=== PATIENT | female | born 1940 | race African-American/Black ===

== ENCOUNTER 2017-09-17 10:48 | Emergency (ER) | payer OTHER ==
[2017-09-17 11:02] VITALS: BP 134/80; PULSE 94; TEMP 98.6; BMI 35.6
[2017-09-17] MEDS ORDERED: ONDANSETRON 4 MG/2 ML VIAL IVPUSH ONE (11:54)
[2017-09-17] MEDS ORDERED: FAMOTIDINE 20 MG/50 ML IVPB 20 MG/50 ML MG IVPB ONE ×2 (11:54→11:56)
[2017-09-17] MEDS ORDERED: SODIUM CHLORIDE 0.9% 500 ML INFUS.BAG IV ONE (11:54)
[2017-09-17] MEDS ORDERED: ONDANSETRON 4 MG/2 ML VIAL ONE (11:56)
--- NOTE | 2017-09-17 11:58 | PDOC ---
History of Present Illness - General Chief Complaint: Diarrhea Stated Complaint: DIARRHEA Time Seen by Provider: 09/17/17 11:08 - History of Present Illness Initial Comments: 09/17/17 11:54 77-year-old female with a history of hypertension presents emergency Department with nausea vomiting and diarrhea since last night. The patient reports eating dinner with her family and going to sleep but awoke in the middle of the night and had 4-5 episodes of nonbloody nonbilious emesis and 5 episodes of nonbloody watery diarrhea. No recent antibiotics. Denies any sick contacts. Denies fevers , chills. Denies abdominal pain. No treatments tried. States she feels dehydrated. Denies any headaches, chest pain, shortness of breath, lower extremity edema, urinary symptoms. No recent travel. Past History - Past Medical History Allergies/Adverse Reactions: Allergies Allergy/AdvReac Type Severity Reaction Status Date / Time No Known Allergies Allergy Verified 09/17/17 10:53 Home Medications: Ambulatory Orders Ascorbate Calcium [Vitamin C] 500 mg PO DAILY 02/08/14 Cholecalciferol (Vitamin D3) [Vitamin D3] 1,000 unit PO DAILY 02/08/14 Esomeprazole Mag Trihydrate [Nexium] 40 mg PO DAILY 02/08/14 Furosemide [Lasix -] 20 mg PO DAILY 02/08/14 Olmesartan/Amlodipin/Hcthiazid [Tgyyksr-Wojulr-Xaqd 40-5-25 mg] 1 each PO DAILY 09/17/17 COPD: No GI Disorders: Yes (GERD) HTN: Yes Hypercholesterolemia: Yes - Surgical History Cholecystectomy: Yes - Suicide/Smoking/Psychosocial Hx Smoking History: Former smoker Have you smoked in the past 12 months: No If you are a former smoker, when did you quit?: 25 YEARS AGO Information on smoking cessation initiated: No Hx Alcohol Use: No Drug/Substance Use Hx: No Substance Use Type: None Review of Systems - Review of Systems Comments:: 09/17/17 11:56 GENERAL/CONSTITUTIONAL: No fever or chills. No weakness. HEAD, EYES, EARS, NOSE AND THROAT: No change in vision. No ear pain or discharge. No sore throat. GASTROINTESTINAL: +nausea, vomiting, diarrhea, no constipation. GENITOURINARY: No dysuria, frequency, or change in urination. CARDIOVASCULAR: No chest pain or shortness of breath. RESPIRATORY: No cough, wheezing, or hemoptysis. MUSCULOSKELETAL: No joint or muscle swelling or pain. No neck or back pain. SKIN: No rash NEUROLOGIC: No headache, vertigo, loss of consciousness, or change in strength/ sensation. ENDOCRINE: No increased thirst. No abnormal weight change. HEMATOLOGIC/LYMPHATIC: No anemia, easy bleeding, or history of blood clots. ALLERGIC/IMMUNOLOGIC: No hives or skin allergy. *Physical Exam - Vital Signs Last Vital Signs Temp Pulse Resp BP Pulse Ox 98.6 F 94 H 16 134/80 100 09/17/17 10:49 09/17/17 10:49 09/17/17 10:49 09/17/17 10:49 09/17/17 10:49 - Physical Exam Comments: 09/17/17 11:56 GENERAL: Awake, alert, and fully oriented, in no acute distress HEAD: No signs of trauma EYES: PERRLA, EOMI, sclera anicteric, conjunctiva clear ENT: Auricles normal inspection, hearing grossly normal, nares patent, oropharynx clear without exudates. dry MM NECK: Normal ROM, supple, no lymphadenopathy, JVD, or masses LUNGS: Breath sounds equal, clear to auscultation bilaterally. No wheezes, and no crackles HEART: Regular rate and rhythm, normal S1 and S2, no murmurs, rubs or gallops ABDOMEN: Soft, nontender, normoactive bowel sounds. No guarding, no rebound. No masses EXTREMITIES: Normal range of motion, no edema. No clubbing or cyanosis. No cords, erythema, or tenderness NEUROLOGICAL: Normal speech, cranial nerves intact, negative pronator drift, 5/ 5 strength in all 4 extremities, normal sensation to light touch in all 4 extremities, normal cerebellar exam, normal gait, normal reflexes and tone SKIN: Warm, Dry, normal turgor, no rashes or lesions noted. ED Treatment Course - LABORATORY CBC & Chemistry Diagram: 09/17/17 12:00 09/17/17 12:00 Medical Decision Making - Medical Decision Making 09/17/17 11:57 77-year-old female presents with multiple episodes of nonbloody vomiting and diarrhea. Vitals unremarkable. Exam with dry mucous membranes. The patient most likely has a viral gastroenteritis. She does not have any tenderness to palpation and her abdominal exam and thus we'll hold off on imaging. Labs, fluids, antiemetics, and Pepcid have been ordered. Should patient develop abdominal pain at any point, will consider imaging. 09/17/17 14:42 Labs unremarkable. Urinalysis with no evidence of UTI. Patient feels much better after fluids, Pepcid and Zofran. Likely has viral gastroenteritis. She is tolerating by mouth and requests discharge home. Advised patient to stay hydrated, will prescribe Zofran as needed for nausea. I discussed the physical exam findings, ancillary test results and final diagnoses with the patient. I answered all of the patient's questions. The patient was satisfied with the care received and felt comfortable with the discharge plan and treatment plan. The patient will call their primary care physician within 24 hours to arrange follow-up and will return to the Emergency Department with any new, persistent or worsening symptoms. *DC/Admit/Observation/Transfer Diagnosis at time of Disposition: Gastroenteritis - Discharge Dispostion Disposition: HOME Condition at time of disposition: Good Admit: No - Referrals Referrals: Ralf Martinez MD [Primary Care Provider] - - Patient Instructions Printed Discharge Instructions: DI for Viral Gastroenteritis -- Adult Additional Instructions: Follow-up with your primary care doctor within 1-2 days. Use Zofran as needed for nausea. Drink plenty of fluids to stay hydrated. Return to the emergency department if you have any new, worsening or concerning symptoms. - Post Discharge Activity - Attestations Physician Attestion: 09/17/17 14:44 I, Dr. Courtney Perales MD, attest that this document has been prepared under my direction and personally reviewed by me in its entirety. I further attest, that it accurately reflects all work, treatment, procedures and medical decision -making performed by me.
[2017-09-17 12:24] LABS: BASO % 2.7 % (0-2.0); EOS % 0.1 % (0-4.5); HEMATOCRIT 42.6 % (32.4-45.2); HEMOGLOBIN 14.2 GM/dl (10.7-15.3); LYMPH % 9.2 % (8-40); MCH 29.3 pg (25.7-33.7); MCHC 33.3 g/dl (32.0-36.0); MEAN PLT VOLUME 7.7 fl (7.5-11.1); MONO % 4.9 % (3.8-10.2); NEUT % 83.1 % (42.8-82.8); PLATELET COUNT 242 K/MM3 (134-434); RBC 4.84 M/mm3 (3.60-5.2); RDW 13.5 % (11.6-15.6); WHITE BLOOD COUNT 7.8 K/mm3 (4.0-10.8)
[2017-09-17 12:32] LABS: ALK PHOS 69 U/L (32-92); ANION GAP 3 (8-16); BILIRUBIN,TOTAL 0.4 mg/dl (0.2-1.0); BLOOD UREA NITROGEN 17 mg/dl (7-18); CALCIUM 8.4 mg/dl (8.4-10.2); CHLORIDE 104 mmol/L (98-107); CO2 28 mmol/L (22-28); CREATININE 0.7 mg/dl (0.6-1.3); GLUCOSE,RANDOM 99 mg/dl (74-106); POTASSIUM 4.1 mmol/L (3.5-5.1); SGOT/AST 24 U/L (10-42); SGPT/ALT 19 U/L (10-40); SODIUM 135 mmol/L (136-145)
[2017-09-17 13:14] LABS: LIPASE 47 U/L (73-393)
[2017-09-17 13:36] LABS: PH,URINE 6.5 (4.5-8); URINE APPEARANCE Clear; URINE BILIRUBIN Negative (NEGATIVE); URINE GLUCOSE (UA) Negative (NEGATIVE); URINE KETONE Negative (NEGATIVE); URINE NITRITE Negative (NEGATIVE); URINE PROTEIN Trace (NEGATIVE); URINE UROBILINOGEN 0.2 (0.2-1.0)
[2017-09-17 13:37] LABS: URINE BLOOD Trace-intact (NEGATIVE); URINE COLOR YELLOW; URINE LEUK ESTERASE TRACE (NEGATIVE)
[2017-09-17 13:44] LABS: URINE BACTERIA FEW /hpf (NEGATIVE)
== END 2017-09-17 14:53 | disposition home or self-care (01) ==
LOC: FER 10:48
PROC: 3E0337Z Introduction of Electrolytic and Water Balance Substance into Peripheral Vein, Percutaneous Approach (ICD-10-PCS; principal; 2017-09-17)
PROC: 3E033GC Introduction of Other Therapeutic Substance into Peripheral Vein, Percutaneous Approach (ICD-10-PCS; 2017-09-17)
DX: K52.9 Noninfective gastroenteritis and colitis, unspecified (principal); I10 Essential (primary) hypertension; K21.9 Gastro-esophageal reflux disease without esophagitis; Z87.891 Personal history of nicotine dependence
CPT/HCPCS: 36415; 80053; 81003; 81015; 83690; 83735; 85025; 87086; 99282-25

== ENCOUNTER 2018-04-13 17:32 | Emergency (ER) | payer OTHER ==
[2018-04-13 17:48] VITALS: BP 147/88; PULSE 76; TEMP 98.7; BMI 34.7
[2018-04-13] MEDS ORDERED: IBUPROFEN 600 MG TABLET (FP) PO ONE ×2 (18:19→18:24)
--- NOTE | 2018-04-13 18:19 | PDOC ---
History of Present Illness - General Chief Complaint: Pain Stated Complaint: LEFT EAR PAIN Time Seen by Provider: 04/13/18 18:02 History Source: Patient Exam Limitations: No Limitations - History of Present Illness Initial Comments: 04/13/18 18:19 Patient is a 77F with history of HTN and sinusitis here today complaining of left ear pain for the past two weeks. Patient reports that she went to an urgent care 5 days ago and has been taking amoxicillin since then. Denies fevers , chills. Endorses an associated headache with burning over the left ear. Patient denies neck pain, neck stiffness. Denies hearing loss. Denies history of kidney disease, diabetes and heart disease. Past History - Past Medical History Allergies/Adverse Reactions: Allergies Allergy/AdvReac Type Severity Reaction Status Date / Time No Known Allergies Allergy Verified 04/13/18 17:34 Home Medications: Ambulatory Orders Olmesartan/Amlodipin/Hcthiazid [Xtdsdqu-Zaorwf-Qrdt 40-5-25 mg] 1 each PO DAILY 09/17/17 COPD: No GI Disorders: Yes (GERD) HTN: Yes Hypercholesterolemia: Yes - Surgical History Cholecystectomy: Yes - Suicide/Smoking/Psychosocial Hx Smoking History: Former smoker Have you smoked in the past 12 months: No If you are a former smoker, when did you quit?: 25 YEARS AGO Information on smoking cessation initiated: No Hx Alcohol Use: Yes (OCCASSIONAL WINE) Drug/Substance Use Hx: No Substance Use Type: Alcohol Review of Systems - Review of Systems Comments:: 04/13/18 18:24 GENERAL/CONSTITUTIONAL: No fever or chills. No weakness. HEAD, EYES, EARS, NOSE AND THROAT: No change in vision. +ear pain, no discharge. No sore throat. CARDIOVASCULAR: No chest pain or shortness of breath RESPIRATORY: No cough, wheezing, or hemoptysis. GASTROINTESTINAL: No nausea, vomiting, diarrhea or constipation. GENITOURINARY: No dysuria, frequency, or change in urination. MUSCULOSKELETAL: No joint or muscle swelling or pain. No neck or back pain. SKIN: No rash NEUROLOGIC: +headache. No vertigo, loss of consciousness, or change in strength/ sensation. ENDOCRINE: No increased thirst. No abnormal weight change HEMATOLOGIC/LYMPHATIC: No anemia, easy bleeding, or history of blood clots. ALLERGIC/IMMUNOLOGIC: No hives or skin allergy. *Physical Exam - Vital Signs Last Vital Signs Temp Pulse Resp BP Pulse Ox 98.7 F 76 18 147/88 100 04/13/18 17:34 04/13/18 17:34 04/13/18 17:34 04/13/18 17:34 04/13/18 17:34 - Physical Exam Comments: 04/13/18 18:30 GENERAL: Awake, alert, and fully oriented, in no acute distress HEAD: No signs of trauma, normocephalic, atraumatic EYES: PERRLA, EOMI, sclera anicteric, conjunctiva clear ENT: Auricles normal inspection, hearing grossly normal, nares patent, oropharynx clear without exudates. Moist mucosa NECK: Normal ROM, supple, no lymphadenopathy, JVD, or masses LUNGS: No distress, speaks full sentences, clear to auscultation bilaterally HEART: Regular rate and rhythm, normal S1 and S2, no murmurs, rubs or gallops, peripheral pulses normal and equal bilaterally. ABDOMEN: Soft, nontender, normoactive bowel sounds. No guarding, no rebound. No masses EXTREMITIES: Normal inspection, Normal range of motion, no edema. No clubbing or cyanosis. NEUROLOGICAL: Cranial nerves II through XII grossly intact. Normal speech, normal gait, no focal sensorimotor deficits SKIN: Warm, Dry, normal turgor, no rashes or lesions noted. Medical Decision Making - Medical Decision Making 04/13/18 18:31 Patient is 77F with history of HTN and sinusitis here today with ear pain, currently on amoxicillin for otitis media. Vital signs stable and normal. Suspect TMJ component to ear pain. Clear TMs, tender along surrounding muscles. Will treat with ibuprofen. Will give return precautions and ENT follow up. Will discharge. *DC/Admit/Observation/Transfer Diagnosis at time of Disposition: Otitis media - Discharge Dispostion Disposition: HOME Condition at time of disposition: Good Decision to Admit order: No - Referrals Referrals: Titi Whiteside MD [Staff Physician] - - Patient Instructions Printed Discharge Instructions: Middle Ear Infection Additional Instructions: Please return if you have any new, worsening or concerning symptoms. Please follow up with your primary care doctor and an ENT doctor, a number has been provided for you. - Post Discharge Activity
--- NOTE | 2018-04-13 18:27 | PDOC ---
Attending Attestation - HPI HPI: 04/13/18 18:27 CC: Ear pain and headache HPI: The patient is a 77 year old female, with a significant past medical history of GERD, HTN, HLD, and chronic sinusitis, who presents to the emergency department with, 2 weeks of left sided earache. As per patient, her ear pain onset 2 weeks ago as a burning sensation. She reports going to urgent care 6 days ago and was given Amoxicillin (compliant). She reports an associated headache she describes as a gradual onset, constant, left sided pain. She denies any recent trauma,neck pain, photophobia, or phonophobia. She denies recent fevers, chills, or dizziness. She denies recent nausea, vomit, diarrhea or constipation. She denies recent dysuria, frequency, urgency or hematuria. She denies recent chest pain or shortness of breath. Allergies: NKA Past surgical history: None reported. Social history: Former smoker (Quit 25 years ago). Occasional alcohol usage. Denies recreational drug use. - Physicial Exam PE: 04/13/18 18:27 Vitals: Triage vital signs reviewed General Appearance: No acute distress, well nourished, well developed Head: Atraumatic Eyes: Pupils equal reactive round, extraocular movement intact Ears: TM's normal bilaterally Nose: Nares patent bilaterally; no nasal congestion Throat: Posterior oropharynx without erythema, mucous membranes moist Neck: Supple; No nuchal rigidity Chest Wall: Nontender Cardiac: Regular rate and rhythm, no murmurs, no rubs, no gallops Lungs: Clear to auscultation bilateral, good air movement bilaterally Abdomen: Soft, nondistended, normal bowel sounds, nontender to palpation Genitourinary: Rectal: Exam deferred Extremities: Full range of motion to all extremities, no cyanosis, clubbing, or edema Skin: Warm and dry, no rashes or lesions, no rash, no petechiae Psych: Normal mood, normal affect - Medical Decision Making 04/13/18 18:28 77 year old female with history of HTN, HLD, chronic sinusitis, and GERD presents to the ED with ear pain and headache. Plan is to: Finish course of antibiotics Follow up with Dr. Whiteside, ENT If symptoms do not improve follow up with dentist and PCP. <Odilia Cm - Last Filed: 04/13/18 18:27> - Resident Resident Name: Nader Perez - ED Attending Attestation I have performed the following: I have examined & evaluated the patient, The case was reviewed & discussed with the resident, I agree w/resident's findings & plan, Exceptions are as noted - Medical Decision Making Well-appearing no apparent distress three-week history of your pain. Normal neurologic examination no acute findings on exam. Follow-up with ENT in her primary care provider after finishing course of antibiotics Findings, need for follow-up and strict return instructions discussed patient. <Bebeto Grace - Last Filed: 04/13/18 18:44> Attestations - Attestations 04/13/18 18:29 Documentation prepared by Odilia Cm, acting as medical laboratory assistant for Bebeto Grace MD. <Odilia Cm - Last Filed: 04/13/18 18:27>
== END 2018-04-13 18:48 | disposition home or self-care (01) ==
LOC: FER 17:32
DX: H66.90 Otitis media, unspecified, unspecified ear (principal); I10 Essential (primary) hypertension; J32.9 Chronic sinusitis, unspecified
CPT/HCPCS: 99281-25

== ENCOUNTER 2018-07-08 13:15 | Emergency (ER) | payer OTHER ==
[2018-07-08 13:51] VITALS: BP 169/99; PULSE 82; TEMP 98.6; BMI 35.4
--- NOTE | 2018-07-08 14:07 | PDOC ---
Attending Attestation - Resident Resident Name: Madi Garcia - ED Attending Attestation I have performed the following: I have examined & evaluated the patient, The case was reviewed & discussed with the resident, I agree w/resident's findings & plan - HPI HPI: 07/08/18 14:03 77 y/o female with left sided neck, muscle pain that radiated up to top of her head. Has seen ENT for ear problems in May. No fever or chills. Worse with movement. Has taken NSAIDS and muscle relaxants but no better. No weakness or numbness. This has been going on since Monday. Denies chest pain, back pain or SOB. - Physicial Exam PE: 07/08/18 14:05 VSS HEENT: unremarkable Heart: RRR w/o murmur Lungs: CTA b/l, no wheezes rhonchi or rales Abd: soft non tender +BS EXT: no C/C/E Neuro: strength 5+/5 b/l in UE and LE, no focal deficits noted Muscle; tenderness to left paravertebral muscles on left side no spinous process tenderness full ROM - Medical Decision Making 07/08/18 15:36 CT cervical spine: stenosis and DDD, also mass to left of thyroid gland 2.4 cm ( pt is aware of this and sees specialist she says), straightening of lordotic curve with left sided muscle spasm Pt is to continue on current meds and will need follow up with pain management and Neurologist Pt is in agreement with plan Case discussed with resident Dr. Garcia Final Dx: cervical strain/muscle strain/spinal stenosis
--- NOTE | 2018-07-08 14:40 | PDOC ---
History of Present Illness - General Chief Complaint: Head/Neck problem Stated Complaint: HEAD & NECK PAIN Time Seen by Provider: 07/08/18 13:22 History Source: Patient Exam Limitations: No Limitations - History of Present Illness Initial Comments: 07/08/18 14:34 76 yo female no sig pmh presents to the ED with 5 days of left sided neck pain radiating to the left side of her head. Pt states the pain is described as sharp and throbbing, intermittent, radiating to the left head and made worse with moving the neck. Pt took NSAIDs and methylcarbomyl without relief. Of note , pt seen over the past couple months for ear infection and ENT for ear pain when she was told nothing of note in the left ear was significant but to return if any new concerns. Denies changes in vision, N/V/F/C, changes in speech, one sided sensory changes or weakness, CP, SOB. Past History - Past Medical History Allergies/Adverse Reactions: Allergies Allergy/AdvReac Type Severity Reaction Status Date / Time No Known Allergies Allergy Verified 04/13/18 17:34 Home Medications: Ambulatory Orders Amlodipine Besylate 10 mg PO DAILY 07/08/18 Aspirin [Aspirin EC] 325 mg PO HS 07/08/18 Chlorpheniramine Maleate [Chlor-Trimeton] 4 mg PO HS 07/08/18 Furosemide [Lasix] 20 mg PO DAILY 07/08/18 Meloxicam [Mobic] 15 mg PO DAILY 07/08/18 Methocarbamol [Robaxin -] 750 mg PO BID 07/08/18 Rosuvastatin [Crestor -] 5 mg PO HS 07/08/18 COPD: No GI Disorders: Yes (GERD) HTN: Yes Hypercholesterolemia: Yes - Surgical History Cholecystectomy: Yes - Suicide/Smoking/Psychosocial Hx Smoking History: Former smoker Have you smoked in the past 12 months: No If you are a former smoker, when did you quit?: 25 YEARS AGO Information on smoking cessation initiated: No Hx Alcohol Use: No Drug/Substance Use Hx: No Substance Use Type: None Review of Systems - Review of Systems Constitutional: No: Chills, Fever HEENTM: No: Blurred Vision Respiratory: No: Shortness of Breath Cardiac (ROS): No: Lightheadedness ABD/GI: No: Constipated, Diarrhea, Nausea, Vomiting : No: Burning, Dysuria Musculoskeletal: Yes: Other (left sided neck pain). No: Back Pain Neurological: Yes: Headache (left side). No: Numbness, Paresthesia, Weakness *Physical Exam - Vital Signs Last Vital Signs Temp Pulse Resp BP Pulse Ox 98.6 F 82 16 169/99 100 07/08/18 13:16 18 13:16 07/08/18 13:16 07/08/18 13:16 07/08/18 13:16 - Physical Exam General Appearance: Yes: Nourished, Appropriately Dressed. No: Apparent Distress HEENT: positive: EOMI, Hearing Grossly Normal. negative: TM Bulging, TM Erythema Neck: positive: Tender (left cervical spine) Respiratory/Chest: positive: Lungs Clear, Normal Breath Sounds Cardiovascular: positive: Regular Rhythm, Regular Rate, S1, S2. negative: Edema , JVD, Murmur Vascular Pulses: Dorsalis-Pedis (R): 4+, Doralis-Pedis (L): 4+ Gastrointestinal/Abdominal: positive: Flat, Soft. 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 negative: Facial Droop, Numbness, Sensory Deficit, Confused, Disoriented Moderate Sedation - Procedure Monitoring Vital Signs: Procedure Monitoring Vital Signs Temperature 98.6 F 07/08/18 13:16 Pulse Rate 82 07/08/18 13:16 Respiratory Rate 16 07/08/18 13:16 Blood Pressure 169/99 07/08/18 13:16 O2 Sat by Pulse Oximetry (%) 100 07/08/18 13:16 ED Treatment Course - RADIOLOGY Radiology Studies Ordered: Category Date Time Status CERVICAL SPINE CT W/O CONTR [CT] Stat CT Scan 07/08/18 13:50 Ordered Medical Decision Making - Medical Decision Making 07/08/18 16:51 77 yo female presents to ED with 5 days of neck pain radiating to left head. No concerning neurological s/s on HP. Vitals WNL Exam: reproducible neck pain to the left C spine and tenderness with palpation to the left temporal region. CN 2-12 grossly intact, strength and sensation equal bilaterally , no changes in vision or jaw pain DDX: mastoiditis (no signs of infection and unlikely) tension CADET, muscle strain , C spine nerve impingement C spine CT shows multi level stenosis, loss of lordosis and foraminal changes along with a known thyroid nodule being followed by her PCP. Pt already on NSAIDS and muscle relaxers. Follow up with Neurology is advised along with rest and continuation of home meds Pt understands the plan and given strict return precautions *DC/Admit/Observation/Transfer Diagnosis at time of Disposition: Neck pain - Discharge Dispostion Disposition: HOME Condition at time of disposition: Good Decision to Admit order: No - Referrals Referrals: Ralf Martinez MD [Primary Care Provider] - Norris Stein MD [Staff Physician] - - Patient Instructions Printed Discharge Instructions: DI for Neck Pain Additional Instructions: Please return to the Emergency Room for new or worsening symptoms including but not limited to: weakness or numbness into the arm or face, lightheadedness, dizziness, continual headache not releieved by over the counter medication, changes in vision or speech. Please make an appointment with the Neurologist referred to you along with your primary care provider within the next 48 hours. Continue taking your home dosed medications. Thank you - Post Discharge Activity
[2018-07-08] MEDS ORDERED: ACETAMINOPHEN 325 MG TABLET (FP) PO ONE (15:44)
[2018-07-08] MEDS ORDERED: ACETAMINOPHEN 325 MG TABLET (FP) ONE (15:55)
== END 2018-07-08 15:57 | disposition home or self-care (01) ==
LOC: FER 13:15
DX: M54.2 Cervicalgia (principal)
CPT/HCPCS: 72125-TC; 99281-25